=== PATIENT | female | born 1970 | race African-American/Black ===

== ENCOUNTER 2021-04-12 13:39 | Inpatient (IN) | payer MEDICAID ==
[~2021-04-12] VITALS: Ht 170.2 cm; Wt 66.7 kg
[2021-04-12 15:02] LABS: BASOPHILS % 1.1 % (0.0-2.0); HEMATOCRIT. 31.5 % (36.0-48.0); HEMOGLOBIN. 10.3 g/dL (12.0-16.0); LYMPHOCYTES % 28.9 % (20.0-50.0); MEAN CORPUSCULAR HEMOGLOBIN 26.5 pg (28.0-32.0); MEAN CORPUSCULAR VOLUME 80.6 fL (81.0-99.0); MEAN PLATELET VOLUME 6.7 fl (7.4-10.4); MONOCYTES % 11.3 % (2.0-8.0); NEUTROPHILS % 56.7 % (40.0-76.0); PLATELET 368 x1000/uL (130-400); RED BLOOD CELL COUNT 3.91 mill/uL (4.2-5.4); RED CELL DISTRIBUTION WIDTH 15.8 % (11.6-14.6)
[2021-04-12 15:41] LABS: CHLORIDE 104 mEq/L (98-107)
[2021-04-12] MEDS ORDERED: ONDANSETRON HCL 4MG/2ML INJ IV ONE (16:15)
[2021-04-12] MEDS ORDERED: MORPHINE SULFATE 4 MG/ML CPJ (NOT FOR IM USE) IV ONE (16:15)
[2021-04-12] MEDS ORDERED: ACETAMINOPHEN 325MG TABLET PO ONE (20:15)
[2021-04-12] MEDS ORDERED: LORAZEPAM 0.5MG TABLET PO ONE (20:15)
[2021-04-12] MEDS ORDERED: IOHEXOL-300 100 ML BOTTLE ONE (21:57)
[2021-04-13] MEDS ORDERED: MORPHINE SULFATE 4 MG/ML CPJ (NOT FOR IM USE) IV ONE (06:30)
[2021-04-13] MEDS ORDERED: MORPHINE SULFATE 2 MG/ML CPJ (NOT FOR IM USE) IV SCH (06:30)
[2021-04-13 10:00] VITALS: BP 144/86
[2021-04-13 10:19] VITALS: BP 144/86
[2021-04-13] MEDS ORDERED: LORAZEPAM 0.5MG TABLET PO PRN (10:30)
[2021-04-13] MEDS ORDERED: DIPHENHYDRAMINE 50MG/ML VIAL IV PRN (10:30)
[2021-04-13] MEDS ORDERED: ONDANSETRON HCL 4MG/2ML INJ IV PRN ×2 (10:30→20:15)
[2021-04-13] MEDS ORDERED: ACETAMINOPHEN 325MG TABLET PO PRN ×2 (10:30)
[2021-04-13] MEDS ORDERED: MAGNESIUM/ALUMINUM HYDROXIDE/SIMETHICONE 30ML UDC PO PRN (10:30)
[2021-04-13] MEDS ORDERED: CLONIDINE 0.1MG TABLET PO PRN (10:30)
[2021-04-13] MEDS ORDERED: ZOLPIDEM TARTRATE 5MG TABLET PO PRN (10:30)
[2021-04-13] MEDS ORDERED: HYDR25TA MT (10:59)
[2021-04-13] MEDS ORDERED: ALBU6.7H9 INH (10:59)
[2021-04-13 12:00] VITALS: BP 115/74
[2021-04-13] MEDS: SODIUM CHLORIDE 0.9% INJ 3ML FLUSH IVF SCH ×2 (13:36→19:38)
[2021-04-13] MEDS: MORPHINE SULFATE 2 MG/ML CPJ (NOT FOR IM USE) IV PRN ×3 (14:45→23:57)
[2021-04-13 16:00] VITALS: BP 109/72
[2021-04-13] MEDS ORDERED: INFLUENZA VACCINE 05/PF 0.5 ML SYRINGE IM ONE (16:00)
[2021-04-13] MEDS ORDERED: PNEUMOCOCCAL 23-VAL P-SAC VAC 0.5 ML IM ONE (16:00)
[2021-04-13 20:00] VITALS: BP 112/70
[2021-04-13] MEDS ORDERED: NALOXONE HCL 0.4MG/ML VIAL IV PRN (20:45)
[2021-04-13] MEDS ORDERED: MIRTAZAPINE 30MG TABLET PO SCH (21:00)
[2021-04-13] MEDS ORDERED: MIRTAZAPINE 15MG TABLET PO SCH (21:19)
[2021-04-13] MEDS ORDERED: MVI, ADULT NO.1 10 ML, FOLIC ACID 1 MG, THIAMINE HCL 100 MG in SODIUM CHLORIDE 0.9% 1,0... IV ONE (22:00)
[2021-04-14] VITALS: BP 104/70
[2021-04-14] MEDS: MORPHINE SULFATE 2 MG/ML CPJ (NOT FOR IM USE) IV PRN ×3 (03:58→12:42)
[2021-04-14 04:00] VITALS: BP 123/83
[2021-04-14 05:57] LABS: CHLORIDE 106 mEq/L (98-107)
[2021-04-14 06:17] LABS: PHOSPHORUS 3.1 mg/dL (2.5-4.9)
[2021-04-14 06:19] LABS: BASOPHILS % 0.8 % (0.0-2.0); EOSINOPHILS % 3.8 % (0.0-5.0); HEMATOCRIT. 29.8 % (36.0-48.0); HEMOGLOBIN. 9.7 g/dL (12.0-16.0); LYMPHOCYTES % 36.2 % (20.0-50.0); MEAN CORPUSCULAR HEMOGLOBIN 26.6 pg (28.0-32.0); MEAN PLATELET VOLUME 6.8 fl (7.4-10.4); MONOCYTES % 9.3 % (2.0-8.0); NEUTROPHILS % 49.9 % (40.0-76.0); PLATELET 319 x1000/uL (130-400); RED BLOOD CELL COUNT 3.63 mill/uL (4.2-5.4); RED CELL DISTRIBUTION WIDTH 15.8 % (11.6-14.6)
[2021-04-14 08:00] VITALS: BP 115/74
[2021-04-14] MEDS ORDERED: PANTOPRAZOLE SODIUM 40 MG/VIAL IV SCH (09:00)
[2021-04-14 12:00] VITALS: BP 114/76
[2021-04-14] MEDS: SODIUM CHLORIDE 0.9% INJ 3ML FLUSH IVF SCH (15:58)
[2021-04-14 16:00] VITALS: BP 105/65
[2021-04-14] MEDS ORDERED: VITAMINS A AND D OINT TUBE TOP SCH (19:30)
== END 2021-04-14 18:50 | disposition left against medical advice (07) | DRG 282 ==
LOC: ER 13:39 → 7EST 04-13 06:23 → ENRESERV 04-13 08:33 → CANBEDREQ 04-14 01:29
PROVIDERS: ADMIT Internal Medicine; ATTEND Internal Medicine
DX: K85.90 Acute pancreatitis without necrosis or infection, unspecified (principal); F10.20 Alcohol dependence, uncomplicated; F32.A Depression, unspecified; K29.20 Alcoholic gastritis without bleeding; K21.9 Gastro-esophageal reflux disease without esophagitis; Z59.00 Homelessness unspecified; Z87.11 Personal history of peptic ulcer disease; Z98.82 Breast implant status; Z88.8 Allergy status to other drugs, medicaments and biological substances
CPT/HCPCS: 36415; 71045; 74177; 80053; 82962; 83735; 84100; 84484; 85025; 85379; 90686; 90732; 93005; 99285; C9113; J2270; J2405; J3411; J3490; J7030; Q9967